=== PATIENT | male | born 1970 | race African-American/Black ===

== ENCOUNTER 2020-03-30 20:00 | Emergency (ER) | payer MEDICAID ==
[~2020-03-30] VITALS: Ht 182.9 cm; Wt 98.0 kg
[2020-03-30] MEDS ORDERED: IBUPROFEN 400MG TABLET PO ONE (22:15)
[2020-03-30] MEDS ORDERED: ACETAMINOPHEN 325MG TABLET PO ONE (22:15)
[2020-03-30] MEDS ORDERED: MORPHINE SULFATE 10 MG/ML CPJ IM ONE (22:15)
[2020-03-30] MEDS ORDERED: KETOROLAC 60MG/2ML VIAL IM STA (22:43)
[2020-03-30] MEDS ORDERED: CYCLOBENZAPRINE 10MG TABLET PO STA (22:43)
[2020-03-31 00:15] LABS: BASOPHILS % 0.5 % (0.0-2.0); EOSINOPHILS % 2.6 % (0.0-5.0); HEMATOCRIT. 43.7 % (42.0-52.0); HEMOGLOBIN. 14.6 g/dL (14.0-18.0); MEAN CORPUSCULAR HEMOGLOBIN 29.1 pg (28.0-32.0); MEAN CORPUSCULAR VOLUME 86.9 fL (80.0-94.0); MEAN PLATELET VOLUME 8.2 fl (7.4-10.4); MONOCYTES % 10.3 % (2.0-8.0); NEUTROPHILS % 46.6 % (40.0-76.0); PLATELET 180 x1000/uL (130-400); RED BLOOD CELL COUNT 5.03 mill/uL (4.7-6.1); RED CELL DISTRIBUTION WIDTH 14.2 % (11.6-14.6)
[2020-03-31 00:28] LABS: CLARITY URINE CLEAR (CLEAR); COLOR URINE YELLOW (YELLOW); KETONES URINE NEGATIVE (NEGATIVE); LEUKOCYTE ESTERASE URINE NEGATIVE (NEGATIVE); NITRITE URINE NEGATIVE (NEGATIVE); OCCULT BLOOD URINE NEGATIVE (NEGATIVE); PROTEIN URINE 1+ (NEGATIVE); SPECIFIC GRAVITY URINE 1.017 (1.005-1.030)
[2020-03-31 02:43] VITALS: BP 147/100
== END 2020-03-31 03:35 | disposition home or self-care (01) ==
LOC: ER 20:00
DX: M54.5 Low back pain (principal); I12.9 Hypertensive chronic kidney disease with stage 1 through stage 4 chronic kidney disease, or unspecified chronic kidney disease; N18.9 Chronic kidney disease, unspecified; Z90.79 Acquired absence of other genital organ(s)
CPT/HCPCS: 36415; 76700; 80048; 81003; 85025; 93005; 96372; 99285; J1885

== ENCOUNTER 2020-05-14 15:12 | Emergency (ER) | payer MEDICAID ==
[~2020-05-14] VITALS: Ht 182.9 cm; Wt 100.0 kg
[2020-05-14 15:42] VITALS: BP 159/117
== END 2020-05-14 17:49 | disposition home or self-care (01) ==
LOC: ER 15:28
DX: I10 Essential (primary) hypertension (principal); Z76.0 Encounter for issue of repeat prescription
CPT/HCPCS: 99283

== ENCOUNTER 2024-05-15 12:24 | Emergency (ER) | payer MEDICAID ==
[~2024-05-15] VITALS: Ht 182.9 cm; Wt 99.0 kg
[2024-05-15 12:41] VITALS: BP 170/115; PULSE 89; RESP 18; TEMP 98.1; O2SAT 99
[2024-05-15] MEDS ORDERED: IBUPROFEN 800MG TABLET PO ONE (13:30)
[2024-05-15] MEDS ORDERED: ACET-2708 MT (14:24)
== END 2024-05-15 14:55 | disposition home or self-care (01) ==
LOC: ER 12:24
DX: S62.92XA Unspecified fracture of left hand, initial encounter for closed fracture (principal); I10 Essential (primary) hypertension; N28.9 Disorder of kidney and ureter, unspecified; W22.01XA Walked into wall, initial encounter; Y93.89 Activity, other specified; Y92.89 Other specified places as the place of occurrence of the external cause; Y99.8 Other external cause status
CPT/HCPCS: 29125; 73130; 99283